=== PATIENT | male | born 1990 | race Caucasian/White ===

== ENCOUNTER 2019-06-25 21:16 | Emergency (ER) | payer OTHER ==
[~2019-06-25] VITALS: Ht 188 cm; Wt 172.4 kg
[2019-06-25 21:22] VITALS: BP 132/81
--- NOTE | 2019-06-25 21:33 | NUR ---
ED Nurse Note: walk-in patient presents with complaints of chest pain with arm involvement. Patient reports history of chest being related to digestive concerns. Will continue to monitor. Vss.
[2019-06-25] MEDS ORDERED: PRILOSEC OTC20 MG ORAL (22:41)
--- NOTE | 2019-06-25 22:41 | Emergency Room Report ---
History of Present Illness General Chief Complaint: Chest Pain Source: Patient Present Illness HPI This is a 28-year-old male with no past medical history. He presents with chief complaint of chest pain. Onset for over a week now. Pain is usually epigastric and left-sided. Burning in nature. Comes and go. Sometimes lasting an hour to a whole day. No exertional component. No radiation. No diaphoresis. No shortness of breath. He was seen at an ER in [place] and blood work and EKG were normal. He was prescribed H2 lucie. Said is not helping. Denies any other complaint. Allergies: Coded Allergies: No Known Allergies (Unverified , 06/25/19) Patient History Past Medical History: see triage record, old chart reviewed Past Surgical History: none Pertinent Family History: none Social History: Denies: smoking Immunizations: other Reviewed Nursing Documentation: PMH: Agreed; PSxH: Agreed Nursing Documentation-PMH Past Medical History: No Stated History Review of Systems Eye: Denies: eye pain, blurred vision ENT: Denies: ear pain, nose congestion, throat swelling Respiratory: Denies: cough, shortness of breath Cardiovascular: Reports: chest pain; Denies: palpitations Gastrointestinal: Denies: abdominal pain, diarrhea, nausea, vomiting Musculoskeletal: Denies: back pain, joint pain Skin: Denies: rash Neurological: Denies: headache, numbness Endocrine: Denies: increased thirst, increased urine Hematologic/Lymphatic: Denies: easy bruising All Other Systems: negative except mentioned in HPI Physical Exam Vital Signs Date Time Temp Pulse Resp B/P (MAP) Pulse Ox O2 Delivery O2 Flow Rate FiO2 06/25/19 21:22 98.8 76 18 132/81 (98) 97 Room Air Vitals normal Sp02 EP Interpretation: reviewed, normal General Appearance: well appearing, no apparent distress, alert, obese Head: normocephalic, atraumatic Eyes: bilateral eye PERRL, bilateral eye EOMI ENT: hearing grossly normal, normal pharynx Neck: full range of motion, supple, no meningismus Respiratory: chest non-tender, lungs clear, normal breath sounds Cardiovascular #1: regular rate, rhythm, no murmur Gastrointestinal: normal bowel sounds, non tender, no mass, no organomegaly, no bruit, non-distended Musculoskeletal: back normal, gait/station normal, normal range of motion Psychiatric: mood/affect normal Medical Decision Making Diagnostic Impression: Primary Impression: Chest pain Qualified Codes: R07.9 - Chest pain, unspecified ER Course Patient with noncardiac chest pain. Most likely reflux in nature. No evidence of ACS, PE, dissection to name a few. EKG normal. Troponin 0. Will discharge home. EKG Diagnostic Results Rate: normal Rhythm: NSR ST Segments: no acute changes Rhythm Strip Diag. Results EP Interpretation: yes Rate: 72 Rhythm: NSR, no PVC's, no ectopy Last Vital Signs Date Time Temp Pulse Resp B/P (MAP) Pulse Ox O2 Delivery O2 Flow Rate FiO2 06/25/19 21:22 98.8 78 18 132/81 97 Room Air Status: unchanged Disposition: HOME, SELF-CARE Condition: Stable Scripts Omeprazole Magnesium (PRILOSEC OTC) 20 Mg Tablet. 20 MG ORAL DAILY, #30 TAB Prov: Kehinde Ga MD 06/25/19 Additional Instructions: Follow-up with your doctor in 7 days. You may need a referral to see a process control technician for stress test and or a newspaper clipper for endoscopy. Return if worse. Kehinde Ga MD Jun 25, 2019 22:41
[2019-06-25 22:58] VITALS: BP 132/81
--- NOTE | 2019-06-25 22:58 | NUR ---
ED Nurse Note: Patient cleared for discharge, verbalized understanding of discharge instructions. Patient ID band removed, Patient IV removed. Patient departed with all belongings and had no complaints upon departure.
== END 2019-06-25 22:58 | disposition home or self-care (01) ==
LOC: EMR 22:10
DX: R07.9 Chest pain, unspecified (principal); E66.9 Obesity, unspecified; Z68.42 Body mass index [BMI] 45.0-49.9, adult
CPT/HCPCS: 84484; 93005; 99283